=== PATIENT | male | born 1970 | race Caucasian/White ===

== ENCOUNTER → 2023-04-22 | Outpatient (CLI) | payer BC ==
--- NOTE | 2023-04-22 22:32 | US ---
EXAMINATION TYPE: US liver DATE OF EXAM: 04/22/2023 COMPARISON: NONE CLINICAL INDICATION: Male, 52 years old with history of R74.01 ELEVATED TRANSAMINASE LEVEL; Elevated liver enzymes TECHNIQUE: Multiple sonographic images of the right upper quadrant are obtained. FINDINGS: EXAM MEASUREMENTS: Liver Length: 17.8 cm Gallbladder Wall: 0.2 cm CBD: 0.4 cm Right Kidney: 11.2 x 4.7 x 4.4 cm [employer]ING [employer]NER NOTES: Limitations due to overlying bowel gas Pancreas: Tail obscured by overlying bowel gas Liver: attenuating, unable to penetrate Gallbladder: no evidence of stones Evidence for sonographic Ahmadi's sign: no CBD: limited evaluation Right Kidney: no evidence of hydronephrosis IMPRESSION: 1. Borderline hepatomegaly at 17.8 cm but with extremely severe hepatic steatosis. Appropriate clinic al management is advised. 2. No gallstones or biliary ductal dilatation.
== END | disposition home or self-care (01) ==
LOC: RADUSWWP 09:03
PROVIDERS: ATTEND Internal Medicine
DX: K76.0 Fatty (change of) liver, not elsewhere classified (principal); R16.0 Hepatomegaly, not elsewhere classified; R74.01 Elevation of levels of liver transaminase levels
CPT/HCPCS: 76705